=== PATIENT | male | born 1980 | race Hispanic/Latino ===

== ENCOUNTER 2017-03-14 02:42 | Emergency (ER) | payer SELFPAY ==
[2017-03-14] MEDS ORDERED: THERMAZENE 50 GRAM TP ONE (07:41)
[2017-03-14] MEDS ORDERED: NORCO 10/325 PO ONE (07:46)
[2017-03-14] MEDS ORDERED: NACL 0.9% 1000 ML 1,000 ML IV ONE (07:46)
[2017-03-14] MEDS ORDERED: BOOSTRIX IM ONE (07:46)
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
[2017-03-14 09:56] VITALS: BP 118/83
== END 2017-03-14 09:57 | disposition home or self-care (01) ==
LOC: ED 02:42
DX: T21.21XA Burn of second degree of chest wall, initial encounter (principal); T31.11 Burns involving 10-19% of body surface with 10-19% third degree burns; X12.XXXA Contact with other hot fluids, initial encounter; Y93.89 Activity, other specified; Y99.8 Other external cause status; Y92.89 Other specified places as the place of occurrence of the external cause
CPT/HCPCS: 16020; 90471; 90715; 96360; 99283; J7030